=== PATIENT | male | born 1995 | race American Indian/Alaskan Native ===

== ENCOUNTER 2019-07-23 12:41 | Emergency (ER) | payer SELFPAY ==
[2019-07-23 12:49] VITALS: BP 132/84
--- NOTE | 2019-07-23 13:50 | Event Note ---
ED Screening Note Date of service: 07/23/19 Time: 13:49 ED Screening Note: 24 y o male presents with swollen and red to right eye, s/p foreign body in eye This initial assessment/diagnostic orders/clinical plan/treatment(s) is/are subject to change based on patients health status, clinical progression and re- assessment by fellow clinical providers in the ED. Further treatment and workup at subsequent clinical providers discretion. Patient/guardian urged not to elope from the ED as their condition may be serious if not clinically assessed and managed. Initial orders include: Eye kit Visual acuity acc eval
[2019-07-23] MEDS ORDERED: BALANCED SALT IRRIG 1 DROPS, TETRACAINE 0.5% 1 DROPS, FLUORESCEIN 1 MG OU ONE (13:51)
== END 2019-07-23 19:42 | disposition left against medical advice (07) ==
LOC: ED 12:41
DX: H57.89 Other specified disorders of eye and adnexa (principal); Z53.21 Procedure and treatment not carried out due to patient leaving prior to being seen by health care provider